=== PATIENT | female | born 1945 | race Caucasian/White ===

== ENCOUNTER 2016-10-17 22:53 | Observation (INO) | payer OTHER ==
[~2016-10-17] VITALS: Ht 160 cm; Wt 62.0 kg
[2016-10-17 23:02] VITALS: Ht 160 cm; Wt 62.0 kg
[2016-10-18] VITALS (13 sets, daily range): BP systolic 110–141; BP diastolic 54–82; PULSE 72–84; RESP 16–18
[2016-10-18] MEDS ORDERED: NITROGLYCERIN 2% 1 GM OINT PKT TD STA (00:28)
[2016-10-18] MEDS ORDERED: ASPIRIN 325 MG TAB PO STA (00:28)
[2016-10-18] MEDS ORDERED: NITROGLYCERIN (SL) 0.4 MG TAB SL PRN (00:30)
[2016-10-18 00:59] LABS: BASOPHILS % 0.2 % (0.0-2.0); EOSINOPHILS # 0.1 10^3/ul (0.0-0.5); EOSINOPHILS % 0.7 % (0.0-7.0); HEMATOCRIT 34.4 % (37.0-47.0); HEMOGLOBIN 11.5 g/dl (12.0-16.0); LYMPHOCYTES # 2.3 10^3/ul (0.8-2.9); LYMPHOCYTES % 25.3 % (15.0-51.0); MEAN CORPUSCULAR HEMOGLOBIN 30.1 pg (29.0-33.0); MEAN CORPUSCULAR HGB CONC 33.4 g/dl (32.0-37.0); MEAN CORPUSCULAR VOLUME 90.1 fl (82.0-101.0); MEAN PLATELET VOLUME 11.9 fl (7.4-10.4); MONOCYTE # 1.1 10^3/ul (0.3-0.9); MONOCYTES % 12.5 % (0.0-11.0); NEUTROPHILS % 60.9 % (39.0-77.0); PLATELET COUNT 215 10^3/UL (140-415); RED BLOOD COUNT 3.82 10^6/ul (4.20-5.40); RED CELL DISTRIBUTION WIDTH 12.7 % (11.5-14.5); WHITE BLOOD COUNT 8.9 10^3/ul (4.8-10.8)
[2016-10-18 01:16] LABS: ANION GAP 19 (8-16); BLOOD UREA NITROGEN 25 mg/dl (7-20); CALCIUM 9.6 mg/dl (8.4-10.2); CARBON DIOXIDE 26 mmol/L (21-31); CHLORIDE 100 mmol/L (97-110); CREATININE 0.81 mg/dl (0.44-1.00); GLUCOSE 279 mg/dl (70-220); POTASSIUM 4.5 mmol/L (3.5-5.1); SODIUM 140 mmol/L (135-144)
[2016-10-18 01:32] LABS: TROPONIN-I < 0.012 ng/ml (0.00-0.12)
--- NOTE | 2016-10-18 01:45 | ERA ---
ER Documentation Chief Complaint Date/Time DATE: 10/18/16 TIME: 01:41 Chief Complaint CP feeling tired, w/pacemaker HPI This is a 70-year-old female with history of diabetes and a pacemaker but no heart attack complains of substernal chest pressure around 7 PM tonight. The daughter is here and said the patient was complaining of chest pain and was extremely pale and sweaty. The patient says she feels better now but her pain is very mild. The patient says her pain radiates to her left shoulder she was diaphoretic and somewhat short of breath and nauseated no dizziness no syncope palpitations. ROS All systems reviewed and are negative except as per history of present illness. Allergies Allergies: Coded Allergies: No Known Allergy (Unverified , 10/17/16) PMhx/Soc Hx Neurological Disorder: Yes (TIA) Hx Cardiac Disorders: Yes (Pacemaker) Hx Alcohol Use: No Hx Substance Use: No Hx Tobacco Use: No Smoking Status: Never smoker FmHx Family History: No coronary disease Physical Exam Vitals Vital Signs Date Time Temp Pulse Resp B/P Pulse Ox O2 Delivery O2 Flow Rate FiO2 10/18/16 00:35 77 18 154/76 98 Room Air 10/17/16 23:02 98.9 84 20 151/76 99 Physical Exam Const: Well-developed, well-nourished Head: Atraumatic, normocephalic Eyes: Normal Conjunctiva, PERRLA, EOMI, normal sclera, no nystagmus ENT: Normal External Ears, Nose and Mouth, moist mucus membranes. Neck: Full range of motion. No meningismus, no lymphadenopathy. Resp: Clear to auscultation bilaterally, no wheezing, rhonchi, rales Cardio: Regular rate and rhythm, no murmurs, S1 S2 present Abd: Soft, non tender x 4, non distended. Normal bowel sounds, no guarding or rebound, no pulsitile abdominal masses or bruits Skin: No petechiae or rashes, no ecchymosis , no maculopapular rash Back: No midline or flank tenderness Ext: No cyanosis, or edema, FROM x 4, normal inspection, neurovascularly intact x 4 Neur: Awake and alert, STR 5/5 x 4, sensation intact x 4, no focal findings, cerebellum intact Psych: Normal Mood and Affect Result Diagram: 10/18/16 0032 10/18/16 0032 Results 24 hrs Laboratory Tests Test 10/18/16 00:32 White Blood Count 8.910^3/ul Red Blood Count 3.8210^6/ul Hemoglobin 11.5g/dl Hematocrit 34.4% Mean Corpuscular Volume 90.1fl Mean Corpuscular Hemoglobin 30.1pg Mean Corpuscular Hemoglobin Concent 33.4g/dl Red Cell Distribution Width 12.7% Platelet Count 02664^3/UL Mean Platelet Volume 11.9fl Neutrophils % 60.9% Lymphocytes % 25.3% Monocytes % 12.5% Eosinophils % 0.7% Basophils % 0.2% Nucleated Red Blood Cells % 0.0/100WBC Neutrophils # (Manual) 5.410^3/ul Lymphocytes # 2.310^3/ul Monocytes # 1.110^3/ul Eosinophils # 0.110^3/ul Basophils # 0.010^3/ul Nucleated Red Blood Cells # 0.010^3/ul Sodium Level 140mmol/L Potassium Level 4.5mmol/L Chloride Level 100mmol/L Carbon Dioxide Level 26mmol/L Anion Gap 19 Blood Urea Nitrogen 25mg/dl Creatinine 0.81mg/dl Glucose Level 279mg/dl Calcium Level 9.6mg/dl Troponin I < 0.012ng/ml Current Medications Medications (Trade) Dose Ordered Sig/Ridge Route PRN Reason Start Time Stop Time Status Last Admin Dose Admin Aspirin (Aspirin) 325 mg ONCE STAT PO 10/18/16 00:28 10/18/16 00:31 DC 10/18/16 00:50 Nitroglycerin (Nitroglycerin 2% Oint) 1 inch ONCE STAT TD 10/18/16 00:28 10/18/16 00:31 DC 10/18/16 00:52 Nitroglycerin (Nitroglycerin (Sl Tab) 0.4 Mg) 1 tab Q5M UP TO 3 DOSES PRN SL CHEST PAIN 10/18/16 00:30 Procedures/MDM EKG: Rate/Rhythm: Normal sinus rhythm with RSR pattern QRS, ST, QT: NORMAL DC, QRS, QT] Impression: NORMAL EKG Chest x-ray is pending Patient's symptoms are concerning for cardiac cause will require inpatient workup and continuous monitoring. Further w/u for ischemia, arrhythmia, PE or dissection will be deferred to the inpatient team. Accepting Care Team: Current data and ongoing care discussed. Time: Time of admission Primary Provider: On day Consulting: [XOXOXO] Outstanding Data: none Departure Diagnosis: Primary Impression: Chest pain Qualified Code: R07.9 - Chest pain, unspecified type Condition: Stable ANNELISE IBARRA DO Oct 18, 2016 01:45
[2016-10-18] MEDS ORDERED: ONDANSETRON 4 MG INJ IV PRN (02:00)
[2016-10-18] MEDS ORDERED: ACETAMINOPHEN 325 MG TAB PO PRN (02:00)
--- NOTE | 2016-10-18 02:00 | RADRPT ---
PROCEDURE: XR Chest. CLINICAL INDICATION: Chest pain TECHNIQUE: AP Portable chest. COMPARISON: No pertinent prior examinations were submitted for comparison. FINDINGS: There is mild cardiomegaly. A left chest cardiac device and leads are noted. Prior median sternoto my is noted. There is some minimal atelectasis at the left lung base. The osseous structures are u nremarkable. IMPRESSION: No acute findings. RPTAT: HIKT .Chao Minor MD, MD Date Time Electronically viewed and signed by .Chao Minor MD, MD on 10/18/2016 02:00 .T/
[2016-10-18] MEDS ORDERED: NAPR-688 PO (02:01)
[2016-10-18] MEDS ORDERED: METF500T4 PO (02:01)
[2016-10-18] MEDS ORDERED: ASPI-664 PO (02:01)
[2016-10-18] MEDS ORDERED: GLIM4TAB PO (02:01)
[2016-10-18] MEDS ORDERED: MECL-77 PO (02:01)
[2016-10-18] MEDS ORDERED: morphine 2 MG INJ IV PRN (04:30)
--- NOTE | 2016-10-18 05:36 | RADRPT ---
PROCEDURE: CT Brain without. CLINICAL INDICATION: Leg numbness TECHNIQUE: A CT of the brain was performed utilizing axial sections from the skull base through th e vertex without contrast. The scan was reviewed in soft tissue brain and high frequency resolution bone algorithm windows. Images were reviewed on a high-resolution PACS workstation. The exam CTDI = 45.01 mGy, and the DLP = 720.23 mGy-cm. One or more of the following dose reduction techniques we re used: Automated exposure control, adjustment of the mA and / or kV according to patient size, or use of iterative reconstruction technique. COMPARISON: None available FINDINGS: There is mild prominence of the lateral ventricles and cerebral sulci, consistent with diffuse cereb ral atrophy. There is no intracranial hemorrhage, midline shift, or mass effect. No abnormal extra- axial fluid collections are identified. There is hypoattenuation of the periventricular white matte r. The lee-white differentiation is well preserved. The basal cisterns are patent. The posterior fossa is unremarkable. The visualized portions of the orbits are unremarkable. The paranasal sinuses and mastoid air cells are clear. There is asymmetric opacification of the right petrous apex. No calvarial fracture or a bnormality are identified. The soft tissues are unremarkable. IMPRESSION: 1. No acute intracranial abnormality. 2. Age related senescent changes with mild diffuse cerebral atrophy. 3. Patchy periventricular hypoattenuation, nonspecific finding, most commonly associated with micro vascular ischemic changes. RPTAT: HH .Yoko Hassan MD, Date Time Electronically viewed and signed by .Yoko Hassan MD, on 10/18/2016 05:36 .G/
--- NOTE | 2016-10-18 06:25 | HP ---
Date/Time of Note Date/Time of Note DATE: 10/18/16 TIME: 06:17 Assessment/Plan VTE Prophylaxis VTE Prophylaxis Intervention: LMWH Lines/Catheters IV Catheter Type (from [facility]): Saline Lock Urinary Cath still in place: No Assessment/Plan Assessment/Plan 1. Chest pain, rule out ACS -Supplemental oxygen, beta-kortney, statin, with as needed nitro and morphine -2D echo and cardiology consult 2. TIA, rule out stroke -will order CT of the head without contrast -Aspirin and statin -Physical therapy evaluation -Additional imaging and neurology consult as needed. Notes that patient has a pacemaker and as such no MRI 3. Diabetes with hyperglycemia -Check A1c in a.m. -Insulin while in-house with adjustment as needed 4. Hypertension: -Adjust antihypertensives as needed HPI/ROS Admit Date/Time Admit Date/Time Oct 18, 2016 at 01:46 Hx of Present Illness This is a 70-year-old male with a history of hypertension, diabetes, pacemaker and TIA who presented to the emergency department complaining of left-sided pressure like chest pain, and numbness of bilateral hand and face (mainly mouth) . Symptoms started last night. Denied facial droop, focal weakness, slurred speech, seizure-like activities, shortness of breath, nausea/vomiting, fever/ chills. When he presented to the ER, blood pressure was 151/76 with a heart rate of 84. Labs shows a hemoglobin of 11.2 and a glucose of 279. First troponin is negative. EKG was no ST-T wave abnormalities. . PMH/Family/Social Past Medical History Medical History: diabetes, hypertension, other (TIA) Past Surgical History Past Surgical Hx: other (Pacemaker) Social History Smoking Status: Never smoker Exam/Review of Systems Vital Signs Vitals Vital Signs Date Time Temp Pulse Resp B/P Pulse Ox O2 Delivery O2 Flow Rate FiO2 10/18/16 04:07 84 10/18/16 04:00 98.5 16 141/63 98 Room Air Intake and Output 10/17/16 10/17/16 10/18/16 15:00 23:00 07:00 Intake Total 200 ml Balance 200 ml Exam Constitutional: alert, oriented, well developed Head: atraumatic, normocephalic Eyes: EOMI, PERRL Respiratory: clear to auscultation, normal air movement Cardiovascular: nl pulses, regular rate and rhythm Gastrointestinal: non-tender, soft Extremities: normal pulses Neurological: nl speech, nl strength Labs Result Diagram: 10/18/163110/18/1631 Medications Medications Current Medications Morphine Sulfate (morphine) 2 mg Q4H PRN IV PAIN; Start 10/18/16 at 04:30 Metoprolol Tartrate (Lopressor) 25 mg BID PO ; Start 10/18/16 at 09:00 Aspirin (Halfprin) 81 mg DAILY PO ; Start 10/18/16 at 09:00 Atorvastatin Calcium (Lipitor) 20 mg HS PO ; Start 10/18/16 at 21:00 RAUDEL SHAFFER MD Oct 18, 2016 06:25
[2016-10-18] MEDS ORDERED: INSULIN GLARGINE [LANtus] 3 ML PEN SC SCH (08:00)
[2016-10-18] MEDS: ASPIRIN (EC) 81 MG TAB PO SCH (08:08)
[2016-10-18] MEDS: METOPROLOL 25 MG TAB PO SCH ×2 (08:09→20:36)
[2016-10-18] MEDS: ENOXAPARIN 40 MG/0.4 ML SYG SC SCH (08:14)
[2016-10-18 08:19] LABS: BASOPHILS % 0.2 % (0.0-2.0); EOSINOPHILS # 0.1 10^3/ul (0.0-0.5); EOSINOPHILS % 0.6 % (0.0-7.0); HEMATOCRIT 32.9 % (37.0-47.0); HEMOGLOBIN 11.1 g/dl (12.0-16.0); LYMPHOCYTES # 1.9 10^3/ul (0.8-2.9); LYMPHOCYTES % 21.4 % (15.0-51.0); MEAN CORPUSCULAR HEMOGLOBIN 29.9 pg (29.0-33.0); MEAN CORPUSCULAR HGB CONC 33.7 g/dl (32.0-37.0); MEAN CORPUSCULAR VOLUME 88.7 fl (82.0-101.0); MEAN PLATELET VOLUME 11.5 fl (7.4-10.4); MONOCYTE # 1.2 10^3/ul (0.3-0.9); MONOCYTES % 13.7 % (0.0-11.0); NEUTROPHILS % 63.5 % (39.0-77.0); PLATELET COUNT 212 10^3/UL (140-415); RED BLOOD COUNT 3.71 10^6/ul (4.20-5.40); RED CELL DISTRIBUTION WIDTH 12.4 % (11.5-14.5); WHITE BLOOD COUNT 8.9 10^3/ul (4.8-10.8)
[2016-10-18] MEDS: INSULIN ASPART [NOVOLOG] 3 ML PEN SC SCH ×5 (08:39→20:41)
[2016-10-18 08:44] LABS: ALBUMIN 3.9 g/dl (3.3-4.9); ALBUMIN/GLOBULIN RATIO 1.08; BILIRUBIN,INDIRECT 0.5 mg/dl (0-1.1); BILIRUBIN,TOTAL 0.5 mg/dl (0.2-1.3); CALCIUM 9.2 mg/dl (8.4-10.2); CHOL/HDL RATIO 2.8 RATIO; CREATININE 0.66 mg/dl (0.44-1.00); POTASSIUM 4.2 mmol/L (3.5-5.1); TOTAL PROTEIN 7.5 g/dl (6.1-8.1)
[2016-10-18 08:52] LABS: TROPONIN-I 0.015 ng/ml (0.00-0.12)
[2016-10-18 09:33] LABS: THYROID STIMULATING HORMONE 1.56 MIU/L (0.465-4.680)
--- NOTE | 2016-10-18 10:05 | RADRPT ---
PROCEDURE: US Carotids. CLINICAL INDICATION: bruit , tia TECHNIQUE: Multiple sonographic of the carotid bifurcation region and vertebral arteries were obta ined utilizing lee scale, duplex and color-flow imaging. The images were reviewed on a PACS worksta tion. COMPARISON: No prior studies are available for comparison. FINDINGS: Evaluation of the right carotid bifurcation region reveals no significant calcific atherosclerotic d isease. Evaluation of the left carotid bifurcation region reveals no significant calcific atherosclerotic di sease. There is antegrade flow within the vertebral arteries bilaterally. RIGHT CAROTID MEASUREMENTS: Common Carotid Rwfwfe75.5 (cm/sec) Internal Carotid Artery - ygipqnsl10.6 (cm/sec) Internal Carotid Artery - mid54.7 (cm/sec) Internal Carotid Artery - sxmudu75.8 (cm/sec) Internal Carotid/Common Carotid0.81 LEFT CAROTID MEASUREMENTS: Common Carotid Aeecaj69.9 (cm/sec) Internal Carotid Artery - uvwluqdx41.2 (cm/sec) Internal Carotid Artery - mid70.4 (cm/sec) Internal Carotid Artery - oyocfa13.2 (cm/sec) Internal Carotid/Common Carotid0.9 RPTAT: AA IMPRESSION: No evidence for hemodynamically significant stenosis in the bilateral internal carotid arteries - va lidated velocity measurements with angiographic measurements, velocity criteria are extrapolated fro m diameter data as defined by the Society of Radiologists in Ultrasound Consensus Conference Radiolo gy 2003; 229;340-346. This study does indirectly reference the measurement of the distal ICA diamet er as the denominator for stenosis measurement. Normal antegrade flow in the vertebral arteries bilaterally. .Amado Hernandez MD, Date Time Electronically viewed and signed by .Amado Hernandez MD, MD on 10/18/2016 10:05 .S/
[2016-10-18] MEDS ORDERED: GLUCOSE GEL 15 GRAM TUBE PO PRN ×2 (15:00)
[2016-10-18] MEDS ORDERED: DEXTROSE 50% 50 ML SYRINGE IV PRN ×2 (15:00)
[2016-10-18] MEDS ORDERED: GLUCAGON 1 MG INJ IM PRN (15:00)
[2016-10-18] MEDS ORDERED: GLUCOSE GEL 15 GRAM TUBE BUCCAL PRN (15:00)
[2016-10-18] MEDS ORDERED: ATORVASTATIN 20 MG TAB PO SCH (21:00)
[2016-10-18] MEDS ORDERED: ATORVASTATIN 80 MG TAB PO SCH (21:00)
--- NOTE | 2016-10-18 22:04 | HKNOTE ---
DATE OF SERVICE: 10/18/2016 HISTORY OF PRESENT ILLNESS: The patient is a 70-year-old lady with a past medical history of diabetes and hypertension. The patient presented with acute onset of numbness and tingling the right side of her body in which I got a call about her for more evaluation and treatment. The patient is poor historian, however, she said the patient was left side chest pressure and is radiating upper and lower extremities associated with tingling and numbness and muscle . PAST MEDICAL HISTORY: As above, includes diabetes and hypertension. PHYSICAL EXAMINATION: GENERAL: The patient is awake, alert, and following simple commands. HEART: Regular rate and rhythm. LUNGS: Equal breath sounds. ABDOMEN: Soft, nondistended, and nontender. PACKING FLOOR WORKER: Two through 12 intact. Moderate decreased right hand barrel brander, 4 plus of 5. Sensation is full glove and stocking. Full adduction. Coordination, finger to nose is intact. ASSESSMENT AND PLAN: 1. The patient is a 70-year-old with underlying possible transient ischemic attack (TIA). Continue the patient on aspirin 81 mg once a ay. Followup the patient with MRI of her brain, carotid Doppler and 2D echocardiogram. 2. Underlying seizure activity. Followup the patient electroencephalogram. 3. Peripheral neuropathy. Possible GBS Probably secondary to diabetes. Followup the patient nerve conduction study and electromyelogram for more evaluation and treatment. 4. High blood pressure. Keep the blood pressure at 140/90 to avoid any risk of stroke. 5. History of diabetes. Followup the patient with hemoglobin A1c, sliding scale insulin and Accu-Cheks twice a day. Again, thank you for asking me see the patient with you. Dictated By: Luis Leung MD /elder/ricardo /Document#: [id number] NAYELI
--- NOTE | 2016-10-18 22:56 | RADRPT ---
Echocardiogram Report Patient Name: DARYL MANDEL Gender: Female Date: 1945 Study Date: 18-Oct-2016 Glass Finisher: Jazzy Gonzalez RDCS Location: [facility] Ref. Physician: RAUDEL SHAFFER Quality: Adequate Procedures: Transthoracic echocardiogram with complete 2D, M-Mode, and doppler examination. Indications: Chest Pain. 2D/M Mode Doppler Measurement Value Normal Ranges Measurement Value Normal Ranges LVIDd 2D 3.7 3.5 - 5.6 cm AV Mean Liang 1.8 m/sec LVIDs 2D 2.8 2.1 - 4.1 cm AV Mean PG 15.4 mmHg LVPWd 2D 0.8 0.6 - 1.1 cm AV Peak Liang 2.6 m/sec IVSd 2D 0.9 0.6 - 1.1 cm AV Peak PG 26.7 mmHg AoR Diam 2D 2.4 2.0 - 3.7 cm AV VTI 53.4 cm EDV 2D 58.4 cm3 LVOT Mean Liang 1.6 m/sec ESV 2D 22.1 cm3 LVOT Mean PG 10.8 mmHg LA Dimen 2D 3.7 2.3 - 4.0 cm LVOT Peak Liang 2.0 m/sec LVOT Diam 1.6 cm LVOT Peak PG 16.5 mmHg LVOT VTI 45.3 cm MV E Peak Liang 2.1 m/sec MV A Peak Liang 1.3 m/sec MV E/A 1.7 MV PHT 132.3 msec MV Peak Liang 2.4 m/sec MV Peak PG 22.8 mmHg MV Mean Liang 1.5 m/sec MV Mean PG 10.6 mmHg MV Decel Time 231 msec MV Decel [place] 9 MV E/A 1.7 MV PHT 132.3 msec MV VTI 73.2 cm MVA PHT 1.7 cm2 TR Peak Liang 2.6 m/sec TR Peak PG 26.7 mmHg RVSP 35.0 mmHg Findings Left Ventricle: Normal left ventricular systolic function. Normal left ventricular cavity size. Normal left ventricular wall thickness. Ejection fraction is visually estimated at 6065 %. Tissue Doppler/Mitral Doppler indices are indeterminate in this study due to the presence of mitral valve replacement. Right Ventricle: Normal right ventricular size. Normal right ventricular systolic function. Pacemaker right heart. Left Atrium: The left atrium is normal in size. Right Atrium: The right atrium is normal in size. Mitral Valve: Mild mitral valve regurgitation. Mitral Valve Bio Prosthesis. Mitral valve Max Velocity 2.39 m/sec. MaxPG 22.80 mmHg. MeanPG 10.60 mmHg. Aortic Valve: Mild aortic stenosis. Aortic valve Max velocity 2.58 m/sec. Max PG 26.70 mmHg. Mean PG 15.40 mmHg. Aortic valve area 1.70 cm2. Trace aortic valve regurgitation. Tricuspid Valve: Normal appearance of the tricuspid valve. Estimated peak PA systolic pressure 35 mmHg. There is mild tricuspid regurgitation. Pulmonic Valve: Normal pulmonic valve appearance. Pericardium: Normal pericardium with no significant pericardial effusion. Aorta: Normal aortic root. IVC: Normal size and no respiratory collapse consistent with elevated right atrial pressure. Conclusions 1.Normal left ventricular systolic function. Normal left ventricular cavity size. Normal left ventricular wall thickness. Ejection fraction is visually estimated at 60-65 %. Tissue Doppler/Mitral Doppler indices are indeterminate in this study due to the presence of mitral valve replacement. 2.Normal right ventricular size. Normal right ventricular systolic function. Pacemaker right heart. 3.Mild mitral valve regurgitation. Mitral Valve Bio Prosthesis. Mitral valve Max Velocity 2.39 m/sec. MaxPG 22.80 mmHg. MeanPG 10.60 mmHg. 4.Mild aortic stenosis. Aortic valve Max velocity 2.58 m/sec. Max PG 26.70 mmHg. Mean PG 15.40 mmHg. Aortic valve area 1.70 cm2. Trace aortic valve regurgitation. 5.Normal appearance of the tricuspid valve. Estimated peak PA systolic pressure 35 mmHg. There is mild tricuspid regurgitation. Electronically Signed By: Abimael Traylor 18-Oct-2016 22:54:49 -0700 Patient Name: DARYL MANDEL Study Date: 18-Oct-2016 [id number]
[2016-10-19] VITALS (8 sets, daily range): BP systolic 106–112; BP diastolic 54–64; PULSE 63–74; RESP 16–18
[2016-10-19] MEDS ORDERED: ACCU-CHEK XX SCH ×2 (02:00)
[2016-10-19 07:33] LABS: BASOPHILS % 0.4 % (0.0-2.0); EOSINOPHILS # 0.1 10^3/ul (0.0-0.5); EOSINOPHILS % 0.7 % (0.0-7.0); HEMATOCRIT 34.3 % (37.0-47.0); HEMOGLOBIN 11.6 g/dl (12.0-16.0); LYMPHOCYTES # 2.4 10^3/ul (0.8-2.9); LYMPHOCYTES % 29.3 % (15.0-51.0); MEAN CORPUSCULAR HEMOGLOBIN 30.5 pg (29.0-33.0); MEAN CORPUSCULAR HGB CONC 33.8 g/dl (32.0-37.0); MEAN CORPUSCULAR VOLUME 90.3 fl (82.0-101.0); MEAN PLATELET VOLUME 11.3 fl (7.4-10.4); MONOCYTE # 1.3 10^3/ul (0.3-0.9); MONOCYTES % 15.6 % (0.0-11.0); NEUTROPHILS % 53.5 % (39.0-77.0); PLATELET COUNT 218 10^3/UL (140-415); RED CELL DISTRIBUTION WIDTH 12.2 % (11.5-14.5); WHITE BLOOD COUNT 8.2 10^3/ul (4.8-10.8)
[2016-10-19] MEDS ORDERED: INSULIN GLARGINE [LANtus] 3 ML PEN SC SCH (08:00)
[2016-10-19] MEDS: ASPIRIN (EC) 81 MG TAB PO SCH (08:02)
[2016-10-19] MEDS: METOPROLOL 25 MG TAB PO SCH (08:02)
[2016-10-19] MEDS: ENOXAPARIN 40 MG/0.4 ML SYG SC SCH (08:07)
[2016-10-19] MEDS: INSULIN ASPART [NOVOLOG] 3 ML PEN SC SCH ×4 (08:09→11:28)
[2016-10-19 08:20] LABS: CALCIUM 9.2 mg/dl (8.4-10.2); CREATININE 0.76 mg/dl (0.44-1.00); POTASSIUM 4.1 mmol/L (3.5-5.1)
--- NOTE | 2016-10-19 14:36 | PDOCDIS ---
Discharge Instructions CONDITION Patient Condition: Stable HOME CARE INSTRUCTIONS: Special Diet: Low fat low chol ACTIVITY: Activity Restrictions: Slowly Increase Activity Rest between Activity FOLLOW UP/APPOINTMENTS Follow-up Plan Please take your medications as prescribed. Please follow-up with your regular doctor in the clinic in the next 1 week. If you experience any further numbness or tingling sensation, or weakness in her arms or legs, please go to the ER, call 911, or see your regular doctor or neurologist. RUTH MARTÍNEZ Oct 19, 2016 14:36
[2016-10-19] MEDS ORDERED: LISI2.5T59 PO (14:41)
--- NOTE | 2016-10-19 15:38 | DS ---
DATE OF ADMISSION: 10/18/2016 DATE OF DISCHARGE: 10/19/2016 HOSPITAL COURSE: This is a 70-year-old female originally admitted on October 18, 2016 and being discharged home on October 19, 2016. The patient came in with signs of chest pain as well as numbness of her bilateral hands and face. She was admitted to telemetry floor. She ruled out for acute coronary syndrome her troponins were negative times 3. She underwent an echocardiogram that showed ejection fraction of 60 to 65 percent, normal left ventricular systolic function, normal left ventricular cavity size, normal left ventricular wall thickness. There was mild mitral valve regurgitation and signs of mitral valve bioprosthesis and mild aortic stenosis. She also underwent carotid Doppler study that showed no evidence for any hemodynamically significant stenosis in the bilateral internal carotid arteries. She underwent a head CT as well because there was concern to rule her out for TIA versus stroke. There was no acute intracranial abnormalities identified. She was evaluated by the neurology team as well, who for unclear reasons ordered an EEG, the results are still pending by the time of discharge. The patient denied any seizure activity and she did not show any signs of seizure activity both before admission or during her admission. She was found with a hemoglobin A1c of 9.5 and was placed on sliding scale insulin to help control her sugars. She was also found some mild hypertension symptoms and initially started on beta kortney, which was switched on discharge to low dose COLETTE inhibitor given her history of diabetes. Over the course of her hospital stay, her numbness and tingling symptoms improved. Her chest pain symptoms improved and resolved. She was able to ambulate and tolerate a p.o. diet. She was evaluated by physical therapy as well, and she will be discharged home today in improved condition. She will need to follow up with her cardiology doctor and primary care doctor in the clinic in the next 1 to 2 weeks and given strict return precautions in the event there is any further numbness or tingling symptoms. DISCHARGE MEDICATIONS: She will go home with the following medications, 1. Lisinopril 2.5 mg daily. 2. Aspirin 81 mg daily. 3. Glimepiride 4 mg daily. 4. Meclizine 25 mg q.6 hours p.r.n. 5. Metformin 500 mg with breakfast. 6. Naproxen 500 mg b.i.d. p.r.n. FINAL DIAGNOSES: 1. Chest pain. Ruled out for acute coronary syndrome. 2. Bilateral hand and facial numbness and tingling, now resolved. Ruled out for acute stroke. 3. Essential hypertension. Started on COLETTE inhibitor. 4. Diabetes with A1c of 9.6 on home p.o. diabetic medications. 5. History of pacemaker in the past. 6. History of prior transient ischemic attack. 7. History of mitral valve replacement in the past. Time spent with discharge of the patient, 45 minutes. Dictated By: Santi Dejesus MD /elder/umm /Document#: [id number] NAYELI
--- NOTE | 2016-10-23 14:24 | NEURPT ---
DATE: 10/19/2016 ELECTROENCEPHALOGRAM: Patient is 70 years old. EEG done using 10/20 international system with photic stimulation. Bilateral occipital hemispheres distribution showed theta waves 6-7 Hz, medium size amplitude, symmetric bilateral. Some sharp waves recorded in the left temporal area. Photic stimulation done did elicit drive. IMPRESSION: This is abnormal electroencephalogram, showed sharp waves right slowing, consistent with the history of underlying postictal status. Followup EEG may be need if clinically indicated. Dictated By: Luis Leung MD /elder/merlene /Document#: [id number]
== END 2016-10-19 16:20 | disposition home or self-care (01) ==
LOC: E/R 22:53 → TEL 10-18 01:46
PROVIDERS: ADMIT Internal Medicine; ATTEND Internal Medicine
DX: R07.9 Chest pain, unspecified (principal); R20.0 Anesthesia of skin; R20.2 Paresthesia of skin; I10 Essential (primary) hypertension; E11.65 Type 2 diabetes mellitus with hyperglycemia; Z95.0 Presence of cardiac pacemaker; Z86.73 Personal history of transient ischemic attack (TIA), and cerebral infarction without residual deficits; Z95.2 Presence of prosthetic heart valve; Z79.82 Long term (current) use of aspirin
CPT/HCPCS: 36415; 70450; 71010; 80048; 80053; 80061; 82962; 83036; 84443; 84484; 85025; 93005; 93306; 93880; 95819; 96372; 97116; 97161; 99285; G0378; J1650; J1815